=== PATIENT | male | born 1940 | race Caucasian/White ===

== ENCOUNTER 2018-11-08 14:28 | Inpatient (IN) | payer MEDICARE, MEDICAID ==
[~2018-11-08] VITALS: Ht 175.3 cm; Wt 118.4 kg
[2018-11-08] MEDS ORDERED: VANCOMYCIN 1 G PREMIX 200 ML IV ONE (15:15)
[2018-11-08] MEDS ORDERED: ACETAMINOPHEN 325MG TABLET PO ONE (15:15)
[2018-11-08] MEDS ORDERED: PIPERACILLIN/TAZ 3.375G PREMIX 50 ML IV ONE (15:15)
[2018-11-08] MEDS ORDERED: LORAZEPAM 2MG/ML CPJ IV ONE (15:15)
[2018-11-08] MEDS ORDERED: SODIUM CHLORIDE 0.9% 1000ML BAG (SEPSIS BOLUS) IV ONE (15:15)
[2018-11-08 15:43] LABS: HEMATOCRIT. 35.6 % (42.0-52.0); HEMOGLOBIN. 11.8 g/dL (14.0-18.0); MEAN CORPUSCULAR HEMOGLOBIN 28.5 pg (28.0-32.0); MEAN CORPUSCULAR VOLUME 85.6 fL (80.0-94.0); MEAN PLATELET VOLUME 9.6 fl (7.4-10.4); PLATELET 267 x1000/uL (130-400); RED BLOOD CELL COUNT 4.15 mill/uL (4.7-6.1); RED CELL DISTRIBUTION WIDTH 15.9 % (11.6-14.6)
[2018-11-08 15:49] LABS: CHLORIDE 111 mEq/L (98-107); PROTHROMBIN TIME 10.8 sec (9.6-11.0)
[2018-11-08 16:03] LABS: PLATELET ESTIMATE NORMAL
[2018-11-08] MEDS ORDERED: ASPIRIN 325MG EC TABLET PO ONE (17:30)
[2018-11-08] MEDS ORDERED: DILTIAZEM HCL 5MG/ML 5ML VIAL IV ONE (18:00)
[2018-11-08 18:04] LABS: BG BASE EXCESS -0.4 mmol/L (-2.0-2.0); BG CARBOXYHEMOGLOBIN 0.3 % (0.5-1.5); BG DEOXYHEMOGLOBIN 3.9 % (0.0-5.0); BG FRACTION INSPIRED OXYGEN 28; BG HCO3 ACT 23.9 mmol/L (22.0-26.0); BG METHEMOGLOBIN 0.2 % (0.0-1.5); BG OXYGEN SATURATION 96.1 % (92.0-98.5); BG OXYHEMOGLOBIN 95.6 % (94.0-97.0); BG PCO2 37.8 mmHg (35.0-45.0); BG PH 7.419 (7.350-7.450); BG PO2 81.5 mmHg (75.0-100.0); BG SAMPLE SITE RIGHT BRACHIAL; BG TOTAL HEMOGLOBIN 10.2 g/dL (12.0-18.0); BG VENT MODE NASAL CANNULA
[2018-11-08 18:41] LABS: CLARITY URINE CLOUDY (CLEAR); COLOR URINE YELLOW (YELLOW); KETONES URINE NEGATIVE (NEGATIVE); LEUKOCYTE ESTERASE URINE TRACE (NEGATIVE); NITRITE URINE NEGATIVE (NEGATIVE); OCCULT BLOOD URINE TRACE (NEGATIVE); PROTEIN URINE 2+ (NEGATIVE); SPECIFIC GRAVITY URINE 1.012 (1.005-1.030); UROBILINOGEN URINE 0.2 E.U./dL (0.2-1.0)
[2018-11-08] MEDS ORDERED: DILTIAZEM HCL 5MG/ML 5ML VIAL IV PRN (19:15)
[2018-11-08] MEDS ORDERED: IPRATROPIUM/ALBUTEROL 0.5-3(2.5)MG/3ML NEB NEB PRN (19:15)
[2018-11-08] MEDS ORDERED: NA PHOS,M-B/NA PHOS,DI-BA ENEMA 118ML PR PRN (19:15)
[2018-11-08] MEDS ORDERED: LORAZEPAM 0.5MG TABLET PO PRN (19:15)
[2018-11-08] MEDS ORDERED: MAGNESIUM/ALUMINUM HYDROXIDE/SIMETHICONE 30ML UDC PO PRN (19:15)
[2018-11-08] MEDS ORDERED: ONDANSETRON HCL 4MG/2ML INJ IV PRN (19:15)
[2018-11-08] MEDS ORDERED: ACETAMINOPHEN 650MG SUPP PR PRN (19:15)
[2018-11-08] MEDS ORDERED: DEXTROSE 50% WATER 50ML SYRINGE IV PRN (19:15)
[2018-11-08] MEDS ORDERED: HYDROCODONE/ACETAMINOPHEN 5/325MG TABLET PO PRN (19:15)
[2018-11-08] MEDS ORDERED: DIPHENHYDRAMINE 50MG/ML VIAL IV PRN (19:15)
[2018-11-08] MEDS ORDERED: GUAIFENESIN 200MG/10ML SUGAR FREE UDC PO PRN (19:15)
[2018-11-08] MEDS ORDERED: ACETAMINOPHEN 325MG TABLET PO PRN (19:15)
[2018-11-08 22:57] LABS: CREATINE KINASE 169 IU/L (39-308); CREATINE KINASE MB FRACTION < 1.0 ng/mL (0.5-3.6)
[2018-11-09] VITALS (11 sets, daily range): BP systolic 108–136; BP diastolic 52–77
[2018-11-09] MEDS ORDERED: OMEP20CA5 PO (01:24)
[2018-11-09] MEDS ORDERED: FENO50CA4 PO (01:27)
[2018-11-09] MEDS ORDERED: GLIP10TA10 PO (01:34)
[2018-11-09] MEDS ORDERED: DOCU-138 PO (01:35)
[2018-11-09] MEDS ORDERED: LISI40TA4 PO (01:35)
[2018-11-09] MEDS ORDERED: GABA-531 PO (01:41)
[2018-11-09] MEDS ORDERED: MIRT15TA6 PO (01:41)
[2018-11-09] MEDS ORDERED: METO-539 PO (01:41)
[2018-11-09] MEDS ORDERED: METF-414 PO (01:41)
[2018-11-09] MEDS ORDERED: MINO2.5T2 PO (01:41)
[2018-11-09] MEDS ORDERED: FURO40TA5 PO (01:42)
[2018-11-09] MEDS ORDERED: CLOP75TA33 PO (01:42)
[2018-11-09] MEDS ORDERED: CRES10 PO (01:42)
[2018-11-09] MEDS ORDERED: LEVVL SQ (01:42)
[2018-11-09] MEDS ORDERED: VITA1CAP MT (01:45)
[2018-11-09] MEDS ORDERED: MULT1TAB67 PO (01:45)
[2018-11-09] MEDS ORDERED: ASCO-339 PO (01:45)
[2018-11-09] MEDS ORDERED: CRAN450T10 PO (01:46)
[2018-11-09] MEDS: IPRATROPIUM/ALBUTEROL 0.5-3(2.5)MG/3ML NEB NEB SCH ×4 (01:50→21:35)
[2018-11-09] MEDS: PIPERACILLIN/TAZOBACTAM 2.25 G in DEXTROSE 5% WATER 50 ML IV SCH ×2 (01:58→12:54)
[2018-11-09] MEDS: SODIUM CHLORIDE 0.45% 1,000 ML IV SCH ×2 (01:58→15:29)
[2018-11-09] MEDS ORDERED: ENOXAPARIN 100MG/ML SYR SUBCUT SCH (02:00)
[2018-11-09] MEDS: DILTIAZEM HCL 30MG TABLET PO SCH ×3 (05:19→21:00)
[2018-11-09] MEDS: INSULIN LISPRO 100 UNITS/ML SUBCUT SCH ×4 (05:30→20:57)
[2018-11-09] MEDS: BLOOD SUGAR DIAGNOSTIC STRIP TEST SCH ×4 (05:30→20:51)
[2018-11-09 06:29] LABS: BASOPHILS % 0.2 % (0.0-2.0); HEMATOCRIT. 28.9 % (42.0-52.0); HEMOGLOBIN. 9.4 g/dL (14.0-18.0); LYMPHOCYTES % 7.7 % (20.0-50.0); MEAN CORPUSCULAR HEMOGLOBIN 27.8 pg (28.0-32.0); MEAN CORPUSCULAR VOLUME 85.3 fL (80.0-94.0); MEAN PLATELET VOLUME 9.2 fl (7.4-10.4); MONOCYTES % 5.9 % (2.0-8.0); NEUTROPHILS % 86.2 % (40.0-76.0); PLATELET 215 x1000/uL (130-400); RED BLOOD CELL COUNT 3.39 mill/uL (4.7-6.1)
[2018-11-09 06:56] LABS: CHLORIDE 118 mEq/L (98-107)
[2018-11-09 07:04] LABS: LDL CHOLESTEROL 39 mg/dL (5-100)
[2018-11-09 07:05] LABS: CREATINE KINASE 157 IU/L (39-308); CREATINE KINASE MB FRACTION < 1.0 ng/mL (0.5-3.6); HDL CHOLESTEROL 34 mg/dL (40-59); T4 FREE 1.19 ng/dL (0.76-1.46)
[2018-11-09] MEDS: ASPIRIN 81MG TABLET PO SCH (08:49)
[2018-11-09] MEDS: ENOXAPARIN 40MG/0.4ML SYR SUBCUT SCH (08:49)
[2018-11-09] MEDS: FAMOTIDINE 20MG/2ML VIAL IV SCH (08:50)
[2018-11-09 13:44] LABS: BG BASE EXCESS -3.3 mmol/L (-2.0-2.0); BG CARBOXYHEMOGLOBIN 0.3 % (0.5-1.5); BG DEOXYHEMOGLOBIN 4.7 % (0.0-5.0); BG FRACTION INSPIRED OXYGEN 28; BG HCO3 ACT 21.7 mmol/L (22.0-26.0); BG METHEMOGLOBIN 0.2 % (0.0-1.5); BG OXYGEN SATURATION 95.3 % (92.0-98.5); BG OXYHEMOGLOBIN 94.8 % (94.0-97.0); BG PCO2 38.5 mmHg (35.0-45.0); BG PH 7.368 (7.350-7.450); BG PO2 76.8 mmHg (75.0-100.0); BG SAMPLE SITE LEFT RADIAL; BG TOTAL HEMOGLOBIN 10.9 g/dL (12.0-18.0); BG VENT MODE NASAL CANNULA
[2018-11-09] MEDS: DEXTROSE 5% WATER 1,000 ML IV SCH (16:25)
[2018-11-09] MEDS ORDERED: VANCOMYCIN 750 MG PREMIX 150 ML IV SCH (17:00)
[2018-11-10] VITALS (12 sets, daily range): BP systolic 108–168; BP diastolic 56–93
[2018-11-10] MEDS: PIPERACILLIN/TAZOBACTAM 2.25 G in DEXTROSE 5% WATER 50 ML IV SCH ×3 (02:00→17:12)
[2018-11-10] MEDS: DILTIAZEM HCL 30MG TABLET PO SCH ×3 (05:21→21:26)
[2018-11-10] MEDS: BLOOD SUGAR DIAGNOSTIC STRIP TEST SCH ×4 (06:10→20:16)
[2018-11-10 06:46] LABS: HEMATOCRIT 28.5 % (42.0-52.0); HEMOGLOBIN 9.4 g/dL (14.0-18.0); MEAN CORPUSCULAR HEMOGLOBIN 28.1 pg (28.0-32.0); MEAN CORPUSCULAR VOLUME 85.4 fL (80.0-94.0); PLATELET 206 x1000/uL (130-400); RED BLOOD CELL COUNT 3.34 mill/uL (4.7-6.1); RED CELL DISTRIBUTION WIDTH 15.6 % (11.6-14.6)
[2018-11-10] MEDS: INSULIN LISPRO 100 UNITS/ML SUBCUT SCH ×4 (07:20→20:24)
[2018-11-10] MEDS: IPRATROPIUM/ALBUTEROL 0.5-3(2.5)MG/3ML NEB NEB SCH ×3 (08:10→22:24)
[2018-11-10] MEDS: ASPIRIN 81MG TABLET PO SCH (08:26)
[2018-11-10] MEDS: FAMOTIDINE 20MG/2ML VIAL IV SCH (08:26)
[2018-11-10] MEDS: ENOXAPARIN 40MG/0.4ML SYR SUBCUT SCH (08:27)
[2018-11-10] MEDS: DEXTROSE 5% WATER 1,000 ML IV SCH (10:17)
[2018-11-10] MEDS: VANCOMYCIN 1 G PREMIX 200 ML IV SCH (16:24)
[2018-11-11] VITALS (12 sets, daily range): BP systolic 134–184; BP diastolic 63–96
[2018-11-11] MEDS: DEXTROSE 5% WATER 1,000 ML IV SCH ×2 (00:42→20:24)
[2018-11-11] MEDS: PIPERACILLIN/TAZOBACTAM 2.25 G in DEXTROSE 5% WATER 50 ML IV SCH ×2 (01:15→09:46)
[2018-11-11] MEDS: IPRATROPIUM/ALBUTEROL 0.5-3(2.5)MG/3ML NEB NEB SCH ×4 (03:05→20:32)
[2018-11-11] MEDS: DILTIAZEM HCL 30MG TABLET PO SCH ×3 (05:04→21:03)
[2018-11-11] MEDS: BLOOD SUGAR DIAGNOSTIC STRIP TEST SCH ×4 (06:08→20:19)
[2018-11-11 07:13] LABS: HEMATOCRIT 31.5 % (42.0-52.0); HEMOGLOBIN 10.3 g/dL (14.0-18.0); MEAN CORPUSCULAR HEMOGLOBIN 27.9 pg (28.0-32.0); MEAN CORPUSCULAR VOLUME 85.5 fL (80.0-94.0); PLATELET 235 x1000/uL (130-400); RED BLOOD CELL COUNT 3.69 mill/uL (4.7-6.1); RED CELL DISTRIBUTION WIDTH 15.8 % (11.6-14.6)
[2018-11-11] MEDS: ASPIRIN 81MG TABLET PO SCH (08:14)
[2018-11-11] MEDS: FAMOTIDINE 20MG/2ML VIAL IV SCH (08:14)
[2018-11-11] MEDS: DOCUSATE SODIUM 100MG CAPSULE PO PRN (08:14)
[2018-11-11] MEDS: INSULIN LISPRO 100 UNITS/ML SUBCUT SCH ×4 (08:16→20:24)
[2018-11-11] MEDS: ENOXAPARIN 40MG/0.4ML SYR SUBCUT SCH (08:17)
[2018-11-11] MEDS: VANCOMYCIN 1 G PREMIX 200 ML IV SCH (16:49)
[2018-11-11] MEDS: PIPERACILLIN/TAZOBACTAM 3.375 G in DEXT 5% WATER 100 ML IV SCH (17:32)
[2018-11-11] MEDS: CLONIDINE 0.1MG TABLET PO PRN (20:48)
[2018-11-12] VITALS (13 sets, daily range): BP systolic 131–183; BP diastolic 52–86
[2018-11-12] MEDS: PIPERACILLIN/TAZOBACTAM 3.375 G in DEXT 5% WATER 100 ML IV SCH ×2 (01:27→09:13)
[2018-11-12] MEDS: IPRATROPIUM/ALBUTEROL 0.5-3(2.5)MG/3ML NEB NEB SCH ×4 (02:58→20:40)
[2018-11-12] MEDS: DILTIAZEM HCL 30MG TABLET PO SCH ×3 (06:04→21:27)
[2018-11-12] MEDS: BLOOD SUGAR DIAGNOSTIC STRIP TEST SCH ×4 (06:05→21:26)
[2018-11-12 07:14] LABS: HEMATOCRIT. 29.6 % (42.0-52.0); HEMOGLOBIN. 9.9 g/dL (14.0-18.0); MEAN CORPUSCULAR HEMOGLOBIN 28.2 pg (28.0-32.0); MEAN CORPUSCULAR VOLUME 84.5 fL (80.0-94.0); MEAN PLATELET VOLUME 9.3 fl (7.4-10.4); PLATELET 248 x1000/uL (130-400); RED BLOOD CELL COUNT 3.51 mill/uL (4.7-6.1); RED CELL DISTRIBUTION WIDTH 15.3 % (11.6-14.6)
[2018-11-12 07:34] LABS: CHLORIDE 110 mEq/L (98-107)
[2018-11-12] MEDS: INSULIN LISPRO 100 UNITS/ML SUBCUT SCH ×4 (08:45→21:21)
[2018-11-12] MEDS: ENOXAPARIN 40MG/0.4ML SYR SUBCUT SCH (08:46)
[2018-11-12] MEDS: ASPIRIN 81MG TABLET PO SCH (08:46)
[2018-11-12] MEDS: FAMOTIDINE 20MG/2ML VIAL IV SCH (08:46)
[2018-11-12] MEDS: DEXTROSE 5% WATER 1,000 ML IV SCH (08:49)
[2018-11-12] MEDS: CLONIDINE 0.1MG TABLET PO PRN ×2 (08:55→21:28)
[2018-11-12 10:17] LABS: BG BASE EXCESS -0.6 mmol/L (-2.0-2.0); BG CARBOXYHEMOGLOBIN 0.2 % (0.5-1.5); BG DEOXYHEMOGLOBIN 6.3 % (0.0-5.0); BG FRACTION INSPIRED OXYGEN 21; BG HCO3 ACT 23.4 mmol/L (22.0-26.0); BG METHEMOGLOBIN 0.2 % (0.0-1.5); BG OXYGEN SATURATION 93.7 % (92.0-98.5); BG OXYHEMOGLOBIN 93.3 % (94.0-97.0); BG PCO2 35.6 mmHg (35.0-45.0); BG PH 7.435 (7.350-7.450); BG PO2 65.9 mmHg (75.0-100.0); BG SAMPLE SITE RIGHT BRACHIAL; BG TOTAL HEMOGLOBIN 10.3 g/dL (12.0-18.0); BG VENT MODE ROOM AIR
[2018-11-12] MEDS ORDERED: LEVOFLOXACIN 500MG TABLET PO SCH (11:00)
[2018-11-12] MEDS ORDERED: DILT-26 MT (11:26)
[2018-11-12] MEDS ORDERED: LEVO500T2 PO (11:26)
[2018-11-12] MEDS ORDERED: FURO20TA4 MT (11:26)
[2018-11-12] MEDS ORDERED: POTASSIUM CHLORIDE 20MEQ TABLET SR PO NR (11:29)
[2018-11-12 14:05] LABS: PLATELET ESTIMATE NORMAL
[2018-11-12] MEDS: LISINOPRIL 40MG TABLET PO SCH (18:16)
[2018-11-13] VITALS (13 sets, daily range): BP systolic 87–170; BP diastolic 61–86
[2018-11-13] MEDS: IPRATROPIUM/ALBUTEROL 0.5-3(2.5)MG/3ML NEB NEB SCH ×3 (02:12→14:37)
[2018-11-13] MEDS: INSULIN LISPRO 100 UNITS/ML SUBCUT SCH ×4 (06:35→21:32)
[2018-11-13] MEDS: CLONIDINE 0.1MG TABLET PO PRN ×4 (06:40→21:19)
[2018-11-13] MEDS: DILTIAZEM HCL 30MG TABLET PO SCH ×3 (06:40→21:18)
[2018-11-13] MEDS: BLOOD SUGAR DIAGNOSTIC STRIP TEST SCH ×4 (06:40→21:17)
[2018-11-13 07:16] LABS: HEMATOCRIT 30.4 % (42.0-52.0); MEAN CORPUSCULAR HEMOGLOBIN 28.1 pg (28.0-32.0); PLATELET 303 x1000/uL (130-400); RED BLOOD CELL COUNT 3.58 mill/uL (4.7-6.1); RED CELL DISTRIBUTION WIDTH 15.5 % (11.6-14.6)
[2018-11-13] MEDS: DOCUSATE SODIUM 100MG CAPSULE PO PRN (08:36)
[2018-11-13] MEDS: LISINOPRIL 40MG TABLET PO SCH (08:36)
[2018-11-13] MEDS: ASPIRIN 81MG TABLET PO SCH (08:36)
[2018-11-13] MEDS: FAMOTIDINE 20MG/2ML VIAL IV SCH (08:36)
[2018-11-13] MEDS: ENOXAPARIN 40MG/0.4ML SYR SUBCUT SCH (08:37)
[2018-11-13] MEDS ORDERED: POTASSIUM CHLORIDE 20MEQ TABLET SR PO NR (13:00)
[2018-11-13] MEDS ORDERED: INSULIN GLARGINE UD 100 UNITS/ML SYR SUBCUT SCH (22:00)
[2018-11-13] MEDS ORDERED: HYDRALAZINE 20MG/ML VIAL IV NR (22:15)
== END 2018-11-13 22:49 | DRG 871 ==
LOC: ER 14:28 → 3WST 17:39 → SUPCPDRO 18:45 → ENRESERV 22:01
PROVIDERS: ADMIT Internal Medicine Critical Care Medicine; ATTEND Internal Medicine Critical Care Medicine
DX: A41.51 Sepsis due to Escherichia coli [E. coli] (principal); I21.4 Non-ST elevation (NSTEMI) myocardial infarction; J96.20 Acute and chronic respiratory failure, unspecified whether with hypoxia or hypercapnia; N17.0 Acute kidney failure with tubular necrosis; G93.40 Encephalopathy, unspecified; L03.115 Cellulitis of right lower limb; N39.0 Urinary tract infection, site not specified; I42.9 Cardiomyopathy, unspecified; I47.1 Supraventricular tachycardia; J98.11 Atelectasis; D64.9 Anemia, unspecified; E11.65 Type 2 diabetes mellitus with hyperglycemia; E78.00 Pure hypercholesterolemia, unspecified; E78.5 Hyperlipidemia, unspecified; E66.9 Obesity, unspecified; E86.0 Dehydration; E87.6 Hypokalemia; I10 Essential (primary) hypertension; Z16.12 Extended spectrum beta lactamase (ESBL) resistance; R13.10 Dysphagia, unspecified; E11.649 Type 2 diabetes mellitus with hypoglycemia without coma; E11.51 Type 2 diabetes mellitus with diabetic peripheral angiopathy without gangrene; G25.3 Myoclonus; Z86.73 Personal history of transient ischemic attack (TIA), and cerebral infarction without residual deficits; Z89.512 Acquired absence of left leg below knee; Z87.891 Personal history of nicotine dependence; Z82.49 Family history of ischemic heart disease and other diseases of the circulatory system; Z99.3 Dependence on wheelchair; Z68.38 Body mass index [BMI] 38.0-38.9, adult
CPT/HCPCS: 36415; 36600; 71045; 73700; 80048; 80061; 80202; 81003; 82140; 82375; 82550; 82553; 82805; 82962; 83036; 83605; 83880; 84145; 84439; 84443; 84484; 85027; 87077; 87186; 92610; 93005; 93306; 93923; 93970; 94640; 96365; 97161; 99291; A6261; J1650; J1815; J2060; J2543; J3370; J3490; J7030; J7060; J7070; J7620

== ENCOUNTER 2018-11-29 15:21 | Inpatient (IN) | payer MEDICARE, MEDICAID ==
[~2018-11-29] VITALS: Ht 167.6 cm; Wt 104.3 kg
[~2018-11-29 15:21] MED LIST: ASCO-339 PO; CLOP75TA33 PO; CRAN450T10 PO; CRES10 PO; DILT-26 MT; DOCU-138 PO; FENO50CA4 PO; FURO20TA4 MT; GABA-531 PO; GLIP10TA10 PO; LEVO500T2 PO; LEVVL SQ; LISI40TA4 PO; METF-414 PO; MIRT15TA6 PO; MULT1TAB67 PO; OMEP20CA5 PO; VITA1CAP MT
[2018-11-29] MEDS ORDERED: SODIUM CHLORIDE 0.9% 1,000 ML IV ONE (18:50)
[2018-11-29] MEDS ORDERED: ACETAMINOPHEN 650MG SUPP PR STA (19:13)
[2018-11-29] MEDS ORDERED: SODIUM CHLORIDE 0.9% 1000ML BAG (SEPSIS BOLUS) IV ONE (19:15)
[2018-11-29] MEDS ORDERED: LEVOFLOXACIN 500MG PREMIX 100 ML IV ONE (19:15)
[2018-11-29] MEDS ORDERED: PIPERACILLIN/TAZ 3.375G PREMIX 50 ML IV ONE (19:15)
[2018-11-29 19:55] LABS: BASOPHILS % 0.6 % (0.0-2.0); CHLORIDE 115 mEq/L (98-107); EOSINOPHILS % 6.2 % (0.0-5.0); HEMOGLOBIN. 12.5 g/dL (14.0-18.0); MEAN CORPUSCULAR HEMOGLOBIN 27.8 pg (28.0-32.0); MEAN CORPUSCULAR VOLUME 84.8 fL (80.0-94.0); MEAN PLATELET VOLUME 10.1 fl (7.4-10.4); MONOCYTES % 6.1 % (2.0-8.0); NEUTROPHILS % 63.1 % (40.0-76.0); PLATELET 252 x1000/uL (130-400); PROTHROMBIN TIME 10.1 sec (9.6-11.0); RED BLOOD CELL COUNT 4.48 mill/uL (4.7-6.1); RED CELL DISTRIBUTION WIDTH 15.9 % (11.6-14.6)
[2018-11-29 19:59] LABS: ETHANOL BLOOD < 10 mg/dL
[2018-11-29 20:03] LABS: CREATINE KINASE 38 IU/L (39-308)
[2018-11-29] MEDS ORDERED: KCL 20MEQ/100ML PREMIX 100 ML IV ONE (20:15)
[2018-11-29] MEDS ORDERED: IPRATROPIUM/ALBUTEROL 0.5-3(2.5)MG/3ML NEB NEB PRN (21:00)
[2018-11-29] MEDS ORDERED: DEXTROSE 50% WATER 50ML SYRINGE IV PRN (21:00)
[2018-11-29] MEDS ORDERED: DIPHENHYDRAMINE 50MG/ML VIAL IV PRN (21:00)
[2018-11-29] MEDS ORDERED: HYDROCODONE/ACETAMINOPHEN 5/325MG TABLET PO PRN (21:00)
[2018-11-29] MEDS ORDERED: MAGNESIUM/ALUMINUM HYDROXIDE/SIMETHICONE 30ML UDC PO PRN (21:00)
[2018-11-29] MEDS ORDERED: ONDANSETRON HCL 4MG/2ML INJ IV PRN (21:00)
[2018-11-29] MEDS ORDERED: LORAZEPAM 2MG/ML CPJ IV PRN (21:00)
[2018-11-29] MEDS ORDERED: GUAIFENESIN 200MG/10ML SUGAR FREE UDC PO PRN (21:00)
[2018-11-29] MEDS ORDERED: MORPHINE SULFATE 2 MG/ML CPJ (NOT FOR IM USE) IV PRN (21:00)
[2018-11-29] MEDS ORDERED: POTASSIUM CHLORIDE 20MEQ TABLET SR PO ONE (21:00)
[2018-11-29 21:11] LABS: CLARITY URINE CLEAR (CLEAR); COLOR URINE YELLOW (YELLOW); KETONES URINE NEGATIVE (NEGATIVE); LEUKOCYTE ESTERASE URINE NEGATIVE (NEGATIVE); NITRITE URINE NEGATIVE (NEGATIVE); OCCULT BLOOD URINE NEGATIVE (NEGATIVE); PH URINE 5.5 (4.5-8.0); PROTEIN URINE 2+ (NEGATIVE); SPECIFIC GRAVITY URINE 1.014 (1.005-1.030); UROBILINOGEN URINE 0.2 E.U./dL (0.2-1.0)
[2018-11-29 21:23] LABS: METHADONE URINE SCREEN NEGATIVE (NEGATIVE); OPIATES URINE SCREEN NEGATIVE (NEGATIVE)
[2018-11-29 21:24] LABS: *AMPHETAMINES SCREEN URINE NEGATIVE (NEGATIVE); *BARBITURATES SCREEN URINE NEGATIVE (NEGATIVE); *BENZODIAZEPINES SCREEN URINE NEGATIVE (NEGATIVE); *COCAINE SCREEN URINE NEGATIVE (NEGATIVE); CANNABINOID URINE SCREEN NEGATIVE (NEGATIVE); PHENCYCLIDINE URINE SCREEN NEGATIVE (NEGATIVE)
[2018-11-29] MEDS ORDERED: INSULIN GLARGINE UD 100 UNITS/ML SYR SUBCUT SCH (22:00)
[2018-11-29] MEDS: CLONIDINE 0.1MG TABLET PO PRN (22:59)
[2018-11-29 23:50] VITALS: BP 165/77
[2018-11-30 00:11] VITALS: BP 165/77
[2018-11-30] MEDS: IPRATROPIUM/ALBUTEROL 0.5-3(2.5)MG/3ML NEB HHN SCH ×4 (00:56→20:11)
[2018-11-30] MEDS ORDERED: POTASSIUM CHLORIDE 20MEQ TABLET SR PO NR (01:00)
[2018-11-30] MEDS: DILTIAZEM HCL 30MG TABLET PO SCH ×3 (02:45→18:07)
[2018-11-30] MEDS: INSULIN GLARGINE UD 100 UNITS/ML SYR SUBCUT SCH ×3 (02:47→22:30)
[2018-11-30] MEDS: SODIUM CHLORIDE 0.45% 1,000 ML IV SCH ×2 (03:02→22:25)
[2018-11-30 04:21] VITALS: BP 179/82
[2018-11-30] MEDS: BLOOD SUGAR DIAGNOSTIC STRIP TEST SCH ×4 (06:35→21:21)
[2018-11-30] MEDS: INSULIN LISPRO 100 UNITS/ML SUBCUT SCH ×4 (06:36→22:29)
[2018-11-30 06:57] LABS: CHLORIDE 122 mEq/L (98-107)
[2018-11-30 07:05] LABS: PHOSPHORUS 2.4 mg/dL (2.5-4.9)
[2018-11-30 07:13] LABS: BASOPHILS % 0.5 % (0.0-2.0); EOSINOPHILS % 6.8 % (0.0-5.0); HEMATOCRIT. 35.6 % (42.0-52.0); HEMOGLOBIN. 11.7 g/dL (14.0-18.0); MEAN CORPUSCULAR VOLUME 84.9 fL (80.0-94.0); MEAN PLATELET VOLUME 9.9 fl (7.4-10.4); MONOCYTES % 7.3 % (2.0-8.0); NEUTROPHILS % 70.4 % (40.0-76.0); PLATELET 206 x1000/uL (130-400); RED BLOOD CELL COUNT 4.19 mill/uL (4.7-6.1); RED CELL DISTRIBUTION WIDTH 15.2 % (11.6-14.6)
[2018-11-30 08:00] VITALS: BP 116/47
[2018-11-30] MEDS ORDERED: PNEUMOCOCCAL 23-VAL P-SAC VAC 0.5 ML IM ONE (08:00)
[2018-11-30] MEDS ORDERED: POTASSIUM CHLORIDE 20MEQ TABLET SR PO SCH ×2 (08:00→13:00)
[2018-11-30] MEDS: LISINOPRIL 40MG TABLET PO SCH (08:53)
[2018-11-30] MEDS: SULFAMETHOXAZOLE/TRIMETHOPRIM 400/80MG TAB PO SCH ×2 (08:53→21:21)
[2018-11-30] MEDS: ENOXAPARIN 30MG/0.3ML SYR SUBCUT SCH ×2 (08:54→21:21)
[2018-11-30] MEDS: ASPIRIN 81MG TABLET PO SCH (08:54)
[2018-11-30] MEDS ORDERED: INFLUENZA VIRUS VACCINE(AFLURIA) 0.5ML SYR IM ONE (10:00)
[2018-11-30 13:00] VITALS: BP_SYST 196; BP_SYST 203; BP_DIAS 80; BP_DIAS 98
[2018-11-30 16:00] VITALS: BP 196/80
[2018-11-30] MEDS: CLONIDINE 0.1MG TABLET PO PRN (18:10)
[2018-11-30] MEDS ORDERED: VANCOMYCIN 1500MG in DEXTROSE 5% WATER 250ML IV SCH (19:00)
[2018-11-30 20:00] VITALS: BP 181/55
[2018-11-30] MEDS: NYSTATIN POWDER 15GM TOP SCH (21:19)
[2018-11-30] MEDS: PIPERACILLIN/TAZOBACTAM 3.375 G in DEXT 5% WATER 100 ML IV SCH (21:22)
[2018-11-30] MEDS ORDERED: PIPERACILLIN/TAZOBACTAM 3.375GM/50ML PREMIX IV ONE (22:00)
[2018-12-01] VITALS: BP 198/74
[2018-12-01] MEDS: DILTIAZEM HCL 30MG TABLET PO SCH ×3 (00:18→15:44)
[2018-12-01] MEDS: CLONIDINE 0.1MG TABLET PO PRN ×3 (00:18→22:15)
[2018-12-01] MEDS: IPRATROPIUM/ALBUTEROL 0.5-3(2.5)MG/3ML NEB HHN SCH ×4 (01:45→21:42)
[2018-12-01 04:00] VITALS: BP 128/77
[2018-12-01] MEDS: PIPERACILLIN/TAZOBACTAM 3.375 G in DEXT 5% WATER 100 ML IV SCH ×3 (06:25→16:32)
[2018-12-01] MEDS: BLOOD SUGAR DIAGNOSTIC STRIP TEST SCH ×4 (06:29→21:00)
[2018-12-01] MEDS: INSULIN LISPRO 100 UNITS/ML SUBCUT SCH ×4 (06:56→22:48)
[2018-12-01] MEDS ORDERED: VANCOMYCIN 750 MG PREMIX 150 ML IV SCH (07:00)
[2018-12-01 08:00] VITALS: BP 190/45
[2018-12-01] MEDS: NYSTATIN POWDER 15GM TOP SCH ×3 (08:35→16:34)
[2018-12-01] MEDS: LISINOPRIL 40MG TABLET PO SCH (08:36)
[2018-12-01] MEDS: ASPIRIN 81MG TABLET PO SCH (08:36)
[2018-12-01] MEDS: SULFAMETHOXAZOLE/TRIMETHOPRIM 400/80MG TAB PO SCH ×2 (08:36→21:56)
[2018-12-01] MEDS: ENOXAPARIN 30MG/0.3ML SYR SUBCUT SCH ×2 (08:38→22:52)
[2018-12-01] MEDS: INSULIN GLARGINE UD 100 UNITS/ML SYR SUBCUT SCH ×2 (10:03→22:58)
[2018-12-01 12:00] VITALS: BP 184/54
[2018-12-01 16:00] VITALS: BP 154/58
[2018-12-01] MEDS: SODIUM CHLORIDE 0.45% 1,000 ML IV SCH (17:13)
[2018-12-01 20:00] VITALS: BP 164/75
[2018-12-01] MEDS ORDERED: VANCOMYCIN 1 G PREMIX 200 ML IV SCH (21:00)
[2018-12-01] MEDS: ACETAMINOPHEN 325MG TABLET PO PRN (22:14)
[2018-12-02] VITALS: BP 138/61
[2018-12-02] MEDS: DILTIAZEM HCL 30MG TABLET PO SCH ×4 (01:00→23:49)
[2018-12-02] MEDS: PIPERACILLIN/TAZOBACTAM 3.375 G in DEXT 5% WATER 100 ML IV SCH ×3 (01:00→17:49)
[2018-12-02] MEDS: IPRATROPIUM/ALBUTEROL 0.5-3(2.5)MG/3ML NEB HHN SCH ×4 (02:39→21:48)
[2018-12-02 04:00] VITALS: BP 132/58
[2018-12-02] MEDS: ACETAMINOPHEN 325MG TABLET PO PRN (06:16)
[2018-12-02 07:00] LABS: CHLORIDE 113 mEq/L (98-107)
[2018-12-02] MEDS: BLOOD SUGAR DIAGNOSTIC STRIP TEST SCH ×4 (07:03→21:38)
[2018-12-02] MEDS: INSULIN LISPRO 100 UNITS/ML SUBCUT SCH ×4 (07:15→22:06)
[2018-12-02 07:33] VITALS: BP 122/87
[2018-12-02] MEDS: ASPIRIN 81MG TABLET PO SCH (08:25)
[2018-12-02] MEDS: SULFAMETHOXAZOLE/TRIMETHOPRIM 400/80MG TAB PO SCH (08:26)
[2018-12-02] MEDS: LISINOPRIL 40MG TABLET PO SCH (08:26)
[2018-12-02] MEDS: CLONIDINE 0.1MG TABLET PO PRN (08:27)
[2018-12-02] MEDS: NYSTATIN POWDER 15GM TOP SCH ×3 (08:27→17:41)
[2018-12-02] MEDS: ENOXAPARIN 30MG/0.3ML SYR SUBCUT SCH ×2 (08:27→21:43)
[2018-12-02] MEDS: INSULIN GLARGINE UD 100 UNITS/ML SYR SUBCUT SCH ×2 (10:54→22:06)
[2018-12-02 12:03] VITALS: BP 146/56
[2018-12-02] MEDS: SODIUM CHLORIDE 0.45% 1,000 ML IV SCH (12:56)
[2018-12-02 16:28] VITALS: BP 160/62
[2018-12-02] MEDS ORDERED: KCL 10MEQ/50ML PREMIX 50 ML IV NR (17:30)
[2018-12-02 20:00] VITALS: BP 153/71
[2018-12-02] MEDS: VANCOMYCIN 1 G PREMIX 200 ML IV SCH (21:32)
[2018-12-03] VITALS: BP 183/73
[2018-12-03] MEDS: PIPERACILLIN/TAZOBACTAM 3.375 G in DEXT 5% WATER 100 ML IV SCH ×3 (00:49→17:34)
[2018-12-03] MEDS: IPRATROPIUM/ALBUTEROL 0.5-3(2.5)MG/3ML NEB HHN SCH ×3 (02:40→13:56)
[2018-12-03 04:00] VITALS: BP 192/85
[2018-12-03] MEDS: CLONIDINE 0.1MG TABLET PO PRN ×2 (04:17→18:46)
[2018-12-03] MEDS: INSULIN LISPRO 100 UNITS/ML SUBCUT SCH (06:11)
[2018-12-03] MEDS: BLOOD SUGAR DIAGNOSTIC STRIP TEST SCH (06:11)
[2018-12-03 07:44] LABS: CHLORIDE 111 mEq/L (98-107)
[2018-12-03 08:00] VITALS: BP 140/77
[2018-12-03] MEDS: LISINOPRIL 40MG TABLET PO SCH (08:49)
[2018-12-03] MEDS: DILTIAZEM HCL 30MG TABLET PO SCH ×2 (08:49→16:25)
[2018-12-03] MEDS: ASPIRIN 81MG TABLET PO SCH (08:49)
[2018-12-03] MEDS: SODIUM CHLORIDE 0.45% 1,000 ML IV SCH (08:51)
[2018-12-03] MEDS: ENOXAPARIN 30MG/0.3ML SYR SUBCUT SCH (08:51)
[2018-12-03] MEDS: NYSTATIN POWDER 15GM TOP SCH ×3 (08:51→17:34)
[2018-12-03] MEDS: INSULIN GLARGINE UD 100 UNITS/ML SYR SUBCUT SCH (10:16)
[2018-12-03] MEDS ORDERED: POTASSIUM CHLORIDE 20MEQ TABLET SR PO NR (11:30)
[2018-12-03 12:00] VITALS: BP 170/73
[2018-12-03 13:54] VITALS: BP 170/73
[2018-12-03] MEDS: VANCOMYCIN 1 G PREMIX 200 ML IV SCH (14:36)
[2018-12-03 16:00] VITALS: BP 170/82
== END 2018-12-03 19:12 | DRG 70 ==
LOC: ER 15:36 → EDBEDREQ 20:10 → EDBEDREQTM 20:10 → 5WST 20:25 → EDBEDREQ 20:37 → EDBEDREQTM 20:37 → ENRESERV 22:17
PROVIDERS: ADMIT Internal Medicine Critical Care Medicine; ATTEND Internal Medicine Critical Care Medicine
DX: G93.41 Metabolic encephalopathy (principal); L89.153 Pressure ulcer of sacral region, stage 3; L89.303 Pressure ulcer of unspecified buttock, stage 3; L03.115 Cellulitis of right lower limb; J96.10 Chronic respiratory failure, unspecified whether with hypoxia or hypercapnia; I42.9 Cardiomyopathy, unspecified; L03.116 Cellulitis of left lower limb; E11.51 Type 2 diabetes mellitus with diabetic peripheral angiopathy without gangrene; G47.33 Obstructive sleep apnea (adult) (pediatric); R32 Unspecified urinary incontinence; E87.6 Hypokalemia; I87.2 Venous insufficiency (chronic) (peripheral); E78.5 Hyperlipidemia, unspecified; E78.00 Pure hypercholesterolemia, unspecified; Z89.512 Acquired absence of left leg below knee; Z79.02 Long term (current) use of antithrombotics/antiplatelets; Z79.4 Long term (current) use of insulin; Z99.3 Dependence on wheelchair; Z79.899 Other long term (current) drug therapy; I69.322 Dysarthria following cerebral infarction; I10 Essential (primary) hypertension
CPT/HCPCS: 36415; 70551; 71045; 80048; 80202; 80305; 80320; 81003; 82550; 82962; 83036; 83605; 83735; 83880; 84100; 84134; 84443; 84484; 87077; 87186; 87804; 90686; 90732; 93005; 94640; 96365; 97162; 97166; 99291; J1650; J1815; J1956; J2543; J3370; J3480; J7030; J7060; J7620; G0480

== ENCOUNTER 2019-03-09 12:45 | Inpatient (IN) | payer MEDICARE, MEDICAID ==
[~2019-03-09] VITALS: Ht 175.3 cm; Wt 105.2 kg
[~2019-03-09 12:45] MED LIST changes: +OMEP20CA14 PO; -OMEP20CA5 PO
[2019-03-09] MEDS ORDERED: IPRATROPIUM BROMIDE (0.02%) 0.5MG/2.5ML NEB HHN STA (13:00)
[2019-03-09] MEDS ORDERED: ALBUTEROL (0.083%) 2.5MG/3ML NEB HHN STA (13:00)
[2019-03-09] MEDS ORDERED: ACETAMINOPHEN 650MG SUPP PR STA (13:00)
[2019-03-09] MEDS ORDERED: SODIUM CHLORIDE 0.9% 1000ML BAG (SEPSIS BOLUS) IV ONE (13:00)
[2019-03-09] MEDS ORDERED: LEVOFLOXACIN 750MG PREMIX 150 ML IV ONE (13:00)
[2019-03-09 13:19] LABS: HEMATOCRIT. 32.9 % (42.0-52.0); HEMOGLOBIN. 10.8 g/dL (14.0-18.0); MEAN CORPUSCULAR HEMOGLOBIN 27.9 pg (28.0-32.0); MEAN CORPUSCULAR VOLUME 85.2 fL (80.0-94.0); RED BLOOD CELL COUNT 3.86 mill/uL (4.7-6.1); RED CELL DISTRIBUTION WIDTH 15.7 % (11.6-14.6)
[2019-03-09 13:26] LABS: CHLORIDE 116 mEq/L (98-107); INR 1.1; PROTHROMBIN TIME 11.6 sec (9.6-11.0)
[2019-03-09 13:47] LABS: MEAN PLATELET VOLUME 9.8 fl (7.4-10.4); PLATELET 293 x1000/uL (130-400); PLATELET ESTIMATE NORMAL
[2019-03-09 14:30] LABS: CLARITY URINE CLEAR (CLEAR); COLOR URINE YELLOW (YELLOW); KETONES URINE NEGATIVE (NEGATIVE); LEUKOCYTE ESTERASE URINE NEGATIVE (NEGATIVE); NITRITE URINE NEGATIVE (NEGATIVE); OCCULT BLOOD URINE NEGATIVE (NEGATIVE); PROTEIN URINE 2+ (NEGATIVE); SPECIFIC GRAVITY URINE 1.013 (1.005-1.030); UROBILINOGEN URINE 0.2 E.U./dL (0.2-1.0)
[2019-03-09] MEDS ORDERED: ACETAMINOPHEN 325MG TABLET PO PRN (15:00)
[2019-03-09] MEDS ORDERED: DEXTROSE 50% WATER 50ML SYRINGE IV PRN (15:00)
[2019-03-09] MEDS ORDERED: IPRATROPIUM/ALBUTEROL 0.5-3(2.5)MG/3ML NEB HHN PRN (15:00)
[2019-03-09] MEDS ORDERED: ONDANSETRON HCL 4MG/2ML INJ IV PRN (15:00)
[2019-03-09] MEDS ORDERED: ASPIRIN 300MG SUPP PR NR (16:30)
[2019-03-09] MEDS ORDERED: PIPERACILLIN/TAZOBACTAM 3.375 G in DEXT 5% WATER 100 ML IV SCH ×2 (16:30→22:00)
[2019-03-09] MEDS ORDERED: LIDOCAINE HCL/PF 1% 2ML VIAL ONE (16:42)
[2019-03-09 17:28] LABS: BG BASE EXCESS -2.5 mmol/L (-2.0-2.0); BG CARBOXYHEMOGLOBIN 0.1 % (0.5-1.5); BG DEOXYHEMOGLOBIN 7.9 % (0.0-5.0); BG HCO3 ACT 23.1 mmol/L (22.0-26.0); BG METHEMOGLOBIN 0.2 % (0.0-1.5); BG OXYGEN SATURATION 92.1 % (92.0-98.5); BG OXYHEMOGLOBIN 91.8 % (94.0-97.0); BG PH 7.348 (7.350-7.450); BG PO2 65.8 mmHg (75.0-100.0); BG SAMPLE SITE RIGHT RADIAL; BG TOTAL HEMOGLOBIN 10.7 g/dL (12.0-18.0); BG VENT MODE MASK - SIMPLE
[2019-03-09 21:10] VITALS: BP 125/53
[2019-03-09] MEDS: BLOOD SUGAR DIAGNOSTIC STRIP TEST SCH (21:15)
[2019-03-09] MEDS: INSULIN LISPRO 100 UNITS/ML SUBCUT SCH (21:30)
[2019-03-09 22:00] VITALS: BP 125/53
[2019-03-09] MEDS ORDERED: VANCOMYCIN 1500MG in DEXTROSE 5% WATER 250ML IV SCH (23:00)
[2019-03-09 23:43] LABS: CREATINE KINASE MB FRACTION 13.9 ng/mL (0.5-3.6)
[2019-03-10] VITALS (13 sets, daily range): BP systolic 114–150; BP diastolic 59–99
[2019-03-10] MEDS: PIPERACILLIN/TAZOBACTAM 2.25 G in DEXTROSE 5% WATER 50 ML IV SCH ×5 (00:12→22:10)
[2019-03-10] MEDS ORDERED: MINO2.5T2 PO (01:53)
[2019-03-10] MEDS ORDERED: AMLO10TA80 MT (01:56)
[2019-03-10] MEDS ORDERED: LOSA1TAB34 MT (01:57)
[2019-03-10] MEDS ORDERED: FURO40TA5 MT (02:01)
[2019-03-10] MEDS ORDERED: IPRA3AMP9 HHN (02:05)
[2019-03-10] MEDS ORDERED: CHOL200059 MT (02:09)
[2019-03-10] MEDS ORDERED: CHOL200059 PO (02:11)
[2019-03-10] MEDS ORDERED: OMEG1CAP66 MT ×2 (02:12→02:14)
[2019-03-10] MEDS ORDERED: SULF-288 MT (02:16)
[2019-03-10] MEDS ORDERED: TERB250T51 PO (02:19)
[2019-03-10] MEDS ORDERED: POTA8TAB MT (02:20)
[2019-03-10] MEDS ORDERED: DILT180C66 MT (02:24)
[2019-03-10] MEDS: BLOOD SUGAR DIAGNOSTIC STRIP TEST SCH ×4 (06:36→21:00)
[2019-03-10 08:53] LABS: HEMATOCRIT. 30.9 % (42.0-52.0); MEAN CORPUSCULAR HEMOGLOBIN 27.7 pg (28.0-32.0); MEAN CORPUSCULAR VOLUME 85.3 fL (80.0-94.0); PLATELET 246 x1000/uL (130-400); RED BLOOD CELL COUNT 3.62 mill/uL (4.7-6.1); RED CELL DISTRIBUTION WIDTH 15.9 % (11.6-14.6)
[2019-03-10] MEDS: INSULIN LISPRO 100 UNITS/ML SUBCUT SCH ×4 (09:10→22:11)
[2019-03-10] MEDS: ENOXAPARIN 40MG/0.4ML SYR SUBCUT SCH (09:11)
[2019-03-10] MEDS: ASPIRIN 81MG TABLET PO SCH (09:11)
[2019-03-10] MEDS ORDERED: INFLUENZA VIRUS VACCINE(AFLURIA) 0.5ML SYR IM ONE (09:45)
[2019-03-10 10:11] LABS: PLATELET ESTIMATE NORMAL
[2019-03-10 10:29] LABS: PHOSPHORUS 5.9 mg/dL (2.5-4.9)
[2019-03-10 10:33] LABS: CREATINE KINASE MB FRACTION 9.6 ng/mL (0.5-3.6)
[2019-03-10] MEDS ORDERED: ALBUMIN HUMAN 25GM/100ML (25%) IV ONE (11:30)
[2019-03-10] MEDS: SODIUM CHLORIDE 0.45% 1,000 ML IV SCH (12:45)
[2019-03-10 16:29] LABS: CREATINE KINASE MB FRACTION 6.1 ng/mL (0.5-3.6)
[2019-03-11] VITALS (73 sets, daily range): BP systolic 71–156; BP diastolic 41–76
[2019-03-11] MEDS: SODIUM CHLORIDE 0.45% 1,000 ML IV SCH ×2 (00:50→16:57)
[2019-03-11] MEDS: PIPERACILLIN/TAZOBACTAM 2.25 G in DEXTROSE 5% WATER 50 ML IV SCH ×2 (04:58→10:33)
[2019-03-11 05:55] LABS: BASOPHILS % 0.5 % (0.0-2.0); EOSINOPHILS % 0.2 % (0.0-5.0); HEMATOCRIT. 29.3 % (42.0-52.0); HEMOGLOBIN. 9.8 g/dL (14.0-18.0); LYMPHOCYTES % 8.5 % (20.0-50.0); MEAN CORPUSCULAR HEMOGLOBIN 28.3 pg (28.0-32.0); MEAN CORPUSCULAR VOLUME 84.4 fL (80.0-94.0); MEAN PLATELET VOLUME 9.4 fl (7.4-10.4); MONOCYTES % 7.8 % (2.0-8.0); PLATELET 239 x1000/uL (130-400); RED BLOOD CELL COUNT 3.48 mill/uL (4.7-6.1); RED CELL DISTRIBUTION WIDTH 15.8 % (11.6-14.6)
[2019-03-11 06:43] LABS: PHOSPHORUS 4.6 mg/dL (2.5-4.9)
[2019-03-11] MEDS: BLOOD SUGAR DIAGNOSTIC STRIP TEST SCH ×4 (07:34→20:17)
[2019-03-11] MEDS: INSULIN LISPRO 100 UNITS/ML SUBCUT SCH ×4 (08:48→20:17)
[2019-03-11] MEDS: ENOXAPARIN 40MG/0.4ML SYR SUBCUT SCH (08:49)
[2019-03-11] MEDS: ASPIRIN 81MG TABLET PO SCH (08:49)
[2019-03-11 08:59] LABS: BG BASE EXCESS -5.6 mmol/L (-2.0-2.0); BG CARBOXYHEMOGLOBIN 0.3 % (0.5-1.5); BG DEOXYHEMOGLOBIN 14.5 % (0.0-5.0); BG FRACTION INSPIRED OXYGEN 60; BG HCO3 ACT 21.2 mmol/L (22.0-26.0); BG METHEMOGLOBIN 0.3 % (0.0-1.5); BG OXYGEN SATURATION 85.4 % (92.0-98.5); BG OXYHEMOGLOBIN 84.9 % (94.0-97.0); BG PCO2 47.2 mmHg (35.0-45.0); BG PO2 51.8 mmHg (75.0-100.0); BG SAMPLE SITE RIGHT RADIAL; BG TOTAL HEMOGLOBIN 10.5 g/dL (12.0-18.0); BG VENT MODE MASK - SIMPLE
[2019-03-11 12:05] LABS: BG BASE EXCESS -4.5 mmol/L (-2.0-2.0); BG BILEVEL POS AIRWAY PRESSURE 15/5; BG CARBOXYHEMOGLOBIN 0.3 % (0.5-1.5); BG DEOXYHEMOGLOBIN 8.3 % (0.0-5.0); BG FRACTION INSPIRED OXYGEN 60; BG HCO3 ACT 23.5 mmol/L (22.0-26.0); BG METHEMOGLOBIN 0.2 % (0.0-1.5); BG OXYGEN SATURATION 91.7 % (92.0-98.5); BG OXYHEMOGLOBIN 91.2 % (94.0-97.0); BG PCO2 57.6 mmHg (35.0-45.0); BG PH 7.229 (7.350-7.450); BG PO2 67.7 mmHg (75.0-100.0); BG SAMPLE SITE RIGHT RADIAL; BG TOTAL HEMOGLOBIN 11.6 g/dL (12.0-18.0); BG VENT MODE MASK - BIPAP
[2019-03-11] MEDS ORDERED: VECURONIUM BROMIDE 10 MG/VIAL IV ONE (13:25)
[2019-03-11] MEDS ORDERED: ETOMIDATE 2MG/ML 10ML VIAL IV ONE (13:25)
[2019-03-11] MEDS ORDERED: VANCOMYCIN 1 G PREMIX 200 ML IV NR (14:00)
[2019-03-11] MEDS ORDERED: FENTANYL CITRATE/PF 500 MCG in SODIUM CHLORIDE 0.9% 40 ML IV PRN (14:00)
[2019-03-11] MEDS: PROPOFOL 10MG/ML 100ML 100 ML IV PRN (14:35)
[2019-03-11 14:39] LABS: BG BASE EXCESS -5.3 mmol/L (-2.0-2.0); BG CARBOXYHEMOGLOBIN 0.3 % (0.5-1.5); BG DEOXYHEMOGLOBIN 1.3 % (0.0-5.0); BG FRACTION INSPIRED OXYGEN 100; BG HCO3 ACT 22.2 mmol/L (22.0-26.0); BG METHEMOGLOBIN 0.1 % (0.0-1.5); BG OXYGEN SATURATION 98.7 % (92.0-98.5); BG OXYHEMOGLOBIN 98.3 % (94.0-97.0); BG PCO2 52.7 mmHg (35.0-45.0); BG PH 7.242 (7.350-7.450); BG PO2 204.5 mmHg (75.0-100.0); BG SAMPLE SITE RIGHT RADIAL; BG TIDAL VOLUME(mL) 550 mL; BG TOTAL HEMOGLOBIN 10.6 g/dL (12.0-18.0); BG VENT MODE VENT - A/C; BG VENT RATE 18 set
[2019-03-11] MEDS ORDERED: MEROPENEM 500 MG in SODIUM CHLORIDE 0.9% 50 ML IV SCH (15:00)
[2019-03-11] MEDS ORDERED: KCL 20MEQ/100ML PREMIX 100 ML IV NR (15:30)
[2019-03-11] MEDS: METHYLPREDNISOLONE SOD SUCC 125 MG/2 ML VIAL IV SCH ×2 (17:26→23:01)
[2019-03-11] MEDS: IPRATROPIUM/ALBUTEROL 0.5-3(2.5)MG/3ML NEB HHN SCH ×2 (17:44→21:12)
[2019-03-11] MEDS: ACETYLCYSTEINE 100MG/ML 10% VIAL 4ML INH SCH (17:44)
[2019-03-11] MEDS: MEROPENEM 500 MG in SODIUM CHLORIDE 0.9% 50 ML IV SCH (18:52)
[2019-03-11 19:27] LABS: BG BASE EXCESS -4.9 mmol/L (-2.0-2.0); BG CARBOXYHEMOGLOBIN 0.3 % (0.5-1.5); BG DEOXYHEMOGLOBIN 1.4 % (0.0-5.0); BG FRACTION INSPIRED OXYGEN 100; BG HCO3 ACT 18.9 mmol/L (22.0-26.0); BG METHEMOGLOBIN 0.3 % (0.0-1.5); BG OXYGEN SATURATION 98.6 % (92.0-98.5); BG PH 7.404 (7.350-7.450); BG PO2 202.1 mmHg (75.0-100.0); BG SAMPLE SITE RIGHT RADIAL; BG TIDAL VOLUME(mL) 600 mL; BG TOTAL HEMOGLOBIN 10.6 g/dL (12.0-18.0); BG VENT MODE VENT - A/C; BG VENT RATE 24 set
[2019-03-12] VITALS (99 sets, daily range): BP systolic 73–162; BP diastolic 38–102
[2019-03-12] MEDS: PROPOFOL 10MG/ML 100ML 100 ML IV PRN ×5 (00:12→21:10)
[2019-03-12] MEDS: IPRATROPIUM/ALBUTEROL 0.5-3(2.5)MG/3ML NEB HHN SCH ×6 (00:44→20:24)
[2019-03-12] MEDS: ACETYLCYSTEINE 100MG/ML 10% VIAL 4ML INH SCH ×3 (00:44→15:49)
[2019-03-12] MEDS: SODIUM CHLORIDE 0.45% 1,000 ML IV SCH (02:42)
[2019-03-12] MEDS: BLOOD SUGAR DIAGNOSTIC STRIP TEST SCH ×4 (05:57→21:11)
[2019-03-12] MEDS: METHYLPREDNISOLONE SOD SUCC 125 MG/2 ML VIAL IV SCH (05:57)
[2019-03-12 06:01] LABS: HEMATOCRIT. 26.6 % (42.0-52.0); HEMOGLOBIN. 8.8 g/dL (14.0-18.0); MEAN CORPUSCULAR HEMOGLOBIN 27.8 pg (28.0-32.0); MEAN CORPUSCULAR VOLUME 84.5 fL (80.0-94.0); MEAN PLATELET VOLUME 9.8 fl (7.4-10.4); PLATELET 231 x1000/uL (130-400); RED BLOOD CELL COUNT 3.15 mill/uL (4.7-6.1); RED CELL DISTRIBUTION WIDTH 15.5 % (11.6-14.6)
[2019-03-12] MEDS: INSULIN LISPRO 100 UNITS/ML SUBCUT SCH ×4 (06:02→21:10)
[2019-03-12 06:16] LABS: CHLORIDE 121 mEq/L (98-107)
[2019-03-12 07:36] LABS: BG BASE EXCESS -11.1 mmol/L (-2.0-2.0); BG CARBOXYHEMOGLOBIN 0.3 % (0.5-1.5); BG DEOXYHEMOGLOBIN 1.8 % (0.0-5.0); BG FRACTION INSPIRED OXYGEN 65; BG HCO3 ACT 13.8 mmol/L (22.0-26.0); BG METHEMOGLOBIN 0.2 % (0.0-1.5); BG OXYGEN SATURATION 98.2 % (92.0-98.5); BG OXYHEMOGLOBIN 97.7 % (94.0-97.0); BG PCO2 28.1 mmHg (35.0-45.0); BG PH 7.309 (7.350-7.450); BG PO2 142.7 mmHg (75.0-100.0); BG SAMPLE SITE RIGHT RADIAL; BG TIDAL VOLUME(mL) 600 mL; BG TOTAL HEMOGLOBIN 11.2 g/dL (12.0-18.0); BG VENT MODE VENT - A/C; BG VENT RATE 24 set
[2019-03-12] MEDS: ASPIRIN 81MG TABLET PO SCH (08:36)
[2019-03-12] MEDS: ENOXAPARIN 40MG/0.4ML SYR SUBCUT SCH (08:37)
[2019-03-12] MEDS: PHENYLEPHRINE 20 MG in DEXT 5% WATER 248 ML IV PRN ×2 (08:58→17:27)
[2019-03-12 09:47] LABS: PLATELET ESTIMATE NORMAL
[2019-03-12] MEDS ORDERED: SODIUM BICARBONATE 8.4% 1 MEQ/ML 50ML SYR IV NR (10:00)
[2019-03-12] MEDS ORDERED: KCL 20MEQ/100ML PREMIX 100 ML IV SCH (11:00)
[2019-03-12] MEDS: DEXTROSE 5% WATER 1,000 ML IV SCH (12:21)
[2019-03-12] MEDS: METHYLPREDNISOLONE SOD SUCC 40 MG/ML VIAL IV SCH ×2 (14:26→21:11)
[2019-03-12] MEDS: MEROPENEM 500 MG in SODIUM CHLORIDE 0.9% 50 ML IV SCH (17:27)
[2019-03-12] MEDS ORDERED: THEOPHYLLINE ANHYDROUS 80 MG/15 ML 120ML NG SCH (22:00)
[2019-03-12] MEDS ORDERED: INSULIN GLARGINE UD 100 UNITS/ML SYR SUBCUT SCH (22:00)
[2019-03-12] MEDS: THEOPHYLLINE ANHYDROUS 80 MG/15 ML 120ML PO SCH (23:26)
[2019-03-13] VITALS (97 sets, daily range): BP systolic 69–164; BP diastolic 34–83
[2019-03-13] MEDS: IPRATROPIUM/ALBUTEROL 0.5-3(2.5)MG/3ML NEB HHN SCH ×6 (00:30→19:57)
[2019-03-13] MEDS: PROPOFOL 10MG/ML 100ML 100 ML IV PRN ×3 (01:42→08:51)
[2019-03-13] MEDS: INSULIN LISPRO 100 UNITS/ML SUBCUT SCH ×2 (05:51→23:18)
[2019-03-13] MEDS: BLOOD SUGAR DIAGNOSTIC STRIP TEST SCH ×4 (05:51→23:18)
[2019-03-13] MEDS: METHYLPREDNISOLONE SOD SUCC 40 MG/ML VIAL IV SCH ×3 (05:51→21:00)
[2019-03-13 06:15] LABS: HEMATOCRIT. 26.9 % (42.0-52.0); HEMOGLOBIN. 8.9 g/dL (14.0-18.0); MEAN CORPUSCULAR HEMOGLOBIN 27.7 pg (28.0-32.0); MEAN CORPUSCULAR VOLUME 83.4 fL (80.0-94.0); PLATELET 290 x1000/uL (130-400); RED BLOOD CELL COUNT 3.23 mill/uL (4.7-6.1); RED CELL DISTRIBUTION WIDTH 15.8 % (11.6-14.6)
[2019-03-13 06:40] LABS: PHOSPHORUS 5.4 mg/dL (2.5-4.9)
[2019-03-13 08:38] LABS: NUCLEATED RED BLOOD CELLS 1 /100 WBC; PLATELET ESTIMATE NORMAL
[2019-03-13] MEDS: ACETYLCYSTEINE 100MG/ML 10% VIAL 4ML INH SCH ×2 (08:48→17:17)
[2019-03-13] MEDS: ASPIRIN 81MG TABLET PO SCH (08:49)
[2019-03-13] MEDS: PANTOPRAZOLE SODIUM 40 MG/VIAL IV SCH (08:49)
[2019-03-13] MEDS: ENOXAPARIN 40MG/0.4ML SYR SUBCUT SCH (08:50)
[2019-03-13] MEDS: PHENYLEPHRINE 20 MG in DEXT 5% WATER 248 ML IV PRN (08:55)
[2019-03-13] MEDS: THEOPHYLLINE ANHYDROUS 80 MG/15 ML 120ML PO SCH ×3 (09:12→23:56)
[2019-03-13 09:22] LABS: BG BASE EXCESS -6.2 mmol/L (-2.0-2.0); BG CARBOXYHEMOGLOBIN 0.3 % (0.5-1.5); BG DEOXYHEMOGLOBIN 1.4 % (0.0-5.0); BG FRACTION INSPIRED OXYGEN 40; BG HCO3 ACT 17.1 mmol/L (22.0-26.0); BG METHEMOGLOBIN 0.3 % (0.0-1.5); BG PCO2 28.7 mmHg (35.0-45.0); BG PH 7.394 (7.350-7.450); BG PO2 210.9 mmHg (75.0-100.0); BG SAMPLE SITE RIGHT RADIAL; BG TIDAL VOLUME(mL) 550 mL; BG TOTAL HEMOGLOBIN 9.2 g/dL (12.0-18.0); BG VENT MODE VENT - A/C; BG VENT RATE 14 set
[2019-03-13] MEDS ORDERED: POTASSIUM CHLORIDE INJ 40 MEQ in DEXT 5% WATER 250 ML IV ONE (09:30)
[2019-03-13] MEDS: CITRIC ACID/SODIUM CITRATE SOLN 30ML UDC NG SCH ×3 (10:28→17:51)
[2019-03-13] MEDS ORDERED: PROPOFOL 10MG/ML 100ML 100 ML IV PRN (12:30)
[2019-03-13] MEDS ORDERED: INSULIN LISPRO 100 UNITS/ML SUBCUT SCH ×2 (13:45→17:00)
[2019-03-13] MEDS: MIDAZOLAM HCL 50 MG in DEXTROSE 5% WATER 40 ML IV PRN (14:24)
[2019-03-13] MEDS: FENTANYL CITRATE/PF 500 MCG in SODIUM CHLORIDE 0.9% 40 ML IV PRN ×3 (14:25→23:51)
[2019-03-13] MEDS: MEROPENEM 500 MG in SODIUM CHLORIDE 0.9% 50 ML IV SCH (17:51)
[2019-03-13] MEDS: DEXTROSE 5% WATER 1,000 ML IV SCH (21:00)
[2019-03-13] MEDS ORDERED: INSULIN GLARGINE UD 100 UNITS/ML SYR SUBCUT SCH (22:00)
[2019-03-14] VITALS (88 sets, daily range): BP systolic 84–153; BP diastolic 46–101
[2019-03-14] MEDS: ACETYLCYSTEINE 100MG/ML 10% VIAL 4ML INH SCH ×4 (00:12→15:26)
[2019-03-14] MEDS: IPRATROPIUM/ALBUTEROL 0.5-3(2.5)MG/3ML NEB HHN SCH ×6 (00:12→20:24)
[2019-03-14] MEDS: MIDAZOLAM HCL 50 MG in DEXTROSE 5% WATER 40 ML IV PRN (01:33)
[2019-03-14] MEDS: PHENYLEPHRINE 20 MG in DEXT 5% WATER 248 ML IV PRN (05:44)
[2019-03-14] MEDS: METHYLPREDNISOLONE SOD SUCC 40 MG/ML VIAL IV SCH ×3 (05:44→21:46)
[2019-03-14] MEDS: INSULIN LISPRO 100 UNITS/ML SUBCUT SCH ×4 (05:45→23:57)
[2019-03-14] MEDS: BLOOD SUGAR DIAGNOSTIC STRIP TEST SCH ×3 (05:45→17:48)
[2019-03-14 05:58] LABS: HEMATOCRIT. 28.8 % (42.0-52.0); HEMOGLOBIN. 9.5 g/dL (14.0-18.0); MEAN CORPUSCULAR HEMOGLOBIN 27.4 pg (28.0-32.0); MEAN CORPUSCULAR VOLUME 83.3 fL (80.0-94.0); MEAN PLATELET VOLUME 9.8 fl (7.4-10.4); PLATELET 302 x1000/uL (130-400); RED BLOOD CELL COUNT 3.46 mill/uL (4.7-6.1); RED CELL DISTRIBUTION WIDTH 15.8 % (11.6-14.6)
[2019-03-14] MEDS: PANTOPRAZOLE SODIUM 40 MG/VIAL IV SCH (08:11)
[2019-03-14] MEDS: ASPIRIN 81MG TABLET PO SCH (08:11)
[2019-03-14] MEDS: THEOPHYLLINE ANHYDROUS 80 MG/15 ML 120ML PO SCH ×3 (08:12→23:56)
[2019-03-14] MEDS: ENOXAPARIN 40MG/0.4ML SYR SUBCUT SCH (08:13)
[2019-03-14] MEDS: FENTANYL CITRATE/PF 500 MCG in SODIUM CHLORIDE 0.9% 40 ML IV PRN ×2 (09:21→15:29)
[2019-03-14 09:23] LABS: PHOSPHORUS 4.6 mg/dL (2.5-4.9)
[2019-03-14] MEDS: CITRIC ACID/SODIUM CITRATE SOLN 30ML UDC NG SCH ×3 (09:33→15:28)
[2019-03-14 09:47] LABS: BG BASE EXCESS -6.2 mmol/L (-2.0-2.0); BG CARBOXYHEMOGLOBIN 0.2 % (0.5-1.5); BG DEOXYHEMOGLOBIN 1.5 % (0.0-5.0); BG FRACTION INSPIRED OXYGEN 40; BG HCO3 ACT 19.1 mmol/L (22.0-26.0); BG METHEMOGLOBIN 0.3 % (0.0-1.5); BG OXYGEN SATURATION 98.5 % (92.0-98.5); BG PCO2 36.7 mmHg (35.0-45.0); BG PH 7.334 (7.350-7.450); BG PO2 207.5 mmHg (75.0-100.0); BG SAMPLE SITE RIGHT BRACHIAL; BG TIDAL VOLUME(mL) 550 mL; BG TOTAL HEMOGLOBIN 10.1 g/dL (12.0-18.0); BG VENT MODE VENT - A/C; BG VENT RATE 24 set
[2019-03-14 09:56] LABS: NUCLEATED RED BLOOD CELLS 5 /100 WBC; PLATELET ESTIMATE NORMAL
[2019-03-14] MEDS ORDERED: VANCOMYCIN 1 G PREMIX 200 ML IV NR (12:00)
[2019-03-14] MEDS: MEROPENEM 500 MG in SODIUM CHLORIDE 0.9% 50 ML IV SCH (18:56)
[2019-03-14] MEDS: INSULIN GLARGINE UD 100 UNITS/ML SYR SUBCUT SCH (21:50)
[2019-03-15] VITALS (68 sets, daily range): BP systolic 86–170; BP diastolic 37–112
[2019-03-15] MEDS: FENTANYL CITRATE/PF 500 MCG in SODIUM CHLORIDE 0.9% 40 ML IV PRN ×3 (00:14→21:20)
[2019-03-15] MEDS: PHENYLEPHRINE 20 MG in DEXT 5% WATER 248 ML IV PRN (00:17)
[2019-03-15] MEDS: IPRATROPIUM/ALBUTEROL 0.5-3(2.5)MG/3ML NEB HHN SCH ×6 (00:19→20:46)
[2019-03-15] MEDS: ACETYLCYSTEINE 100MG/ML 10% VIAL 4ML INH SCH ×2 (00:19→08:15)
[2019-03-15] MEDS: BLOOD SUGAR DIAGNOSTIC STRIP TEST SCH ×4 (00:45→17:38)
[2019-03-15] MEDS: METHYLPREDNISOLONE SOD SUCC 40 MG/ML VIAL IV SCH ×3 (06:04→21:16)
[2019-03-15 06:06] LABS: MEAN CORPUSCULAR HEMOGLOBIN 27.6 pg (28.0-32.0); MEAN CORPUSCULAR VOLUME 82.7 fL (80.0-94.0); MEAN PLATELET VOLUME 9.6 fl (7.4-10.4); PLATELET 285 x1000/uL (130-400); RED BLOOD CELL COUNT 3.26 mill/uL (4.7-6.1); RED CELL DISTRIBUTION WIDTH 15.4 % (11.6-14.6)
[2019-03-15] MEDS: INSULIN LISPRO 100 UNITS/ML SUBCUT SCH ×3 (06:06→18:29)
[2019-03-15 06:37] LABS: PHOSPHORUS 4.6 mg/dL (2.5-4.9)
[2019-03-15 08:16] LABS: BG BASE EXCESS -2.4 mmol/L (-2.0-2.0); BG CARBOXYHEMOGLOBIN 0.3 % (0.5-1.5); BG DEOXYHEMOGLOBIN 1.3 % (0.0-5.0); BG HCO3 ACT 22.2 mmol/L (22.0-26.0); BG METHEMOGLOBIN 0.2 % (0.0-1.5); BG OXYGEN SATURATION 98.7 % (92.0-98.5); BG OXYHEMOGLOBIN 98.2 % (94.0-97.0); BG PCO2 37.3 mmHg (35.0-45.0); BG PH 7.392 (7.350-7.450); BG PO2 184.4 mmHg (75.0-100.0); BG SAMPLE SITE RIGHT RADIAL; BG TIDAL VOLUME(mL) 550 mL; BG TOTAL HEMOGLOBIN 8.7 g/dL (12.0-18.0); BG VENT MODE VENT - A/C; BG VENT RATE 20 set
[2019-03-15] MEDS: ENOXAPARIN 40MG/0.4ML SYR SUBCUT SCH (08:26)
[2019-03-15] MEDS: ASPIRIN 81MG TABLET PO SCH (08:27)
[2019-03-15] MEDS: PANTOPRAZOLE SODIUM 40 MG/VIAL IV SCH (08:27)
[2019-03-15] MEDS: CITRIC ACID/SODIUM CITRATE SOLN 30ML UDC NG SCH ×3 (08:27→18:28)
[2019-03-15] MEDS: THEOPHYLLINE ANHYDROUS 80 MG/15 ML 120ML PO SCH ×2 (08:28→18:29)
[2019-03-15] MEDS: MIDAZOLAM HCL 50 MG in DEXTROSE 5% WATER 40 ML IV PRN (08:47)
[2019-03-15 15:42] LABS: NUCLEATED RED BLOOD CELLS 2 /100 WBC; PLATELET ESTIMATE NORMAL
[2019-03-15] MEDS: MEROPENEM 500 MG in SODIUM CHLORIDE 0.9% 50 ML IV SCH (18:28)
[2019-03-15] MEDS: INSULIN GLARGINE UD 100 UNITS/ML SYR SUBCUT SCH (21:19)
[2019-03-16] VITALS (97 sets, daily range): BP systolic 109–194; BP diastolic 48–90
[2019-03-16] MEDS: INSULIN LISPRO 100 UNITS/ML SUBCUT SCH ×5 (00:58→23:42)
[2019-03-16] MEDS: THEOPHYLLINE ANHYDROUS 80 MG/15 ML 120ML PO SCH ×4 (00:59→23:41)
[2019-03-16] MEDS: IPRATROPIUM/ALBUTEROL 0.5-3(2.5)MG/3ML NEB HHN SCH ×6 (01:30→20:10)
[2019-03-16] MEDS: ACETYLCYSTEINE 100MG/ML 10% VIAL 4ML INH SCH ×2 (01:31→07:54)
[2019-03-16 04:36] LABS: HEMATOCRIT. 28.3 % (42.0-52.0); HEMOGLOBIN. 9.4 g/dL (14.0-18.0); MEAN CORPUSCULAR HEMOGLOBIN 27.5 pg (28.0-32.0); MEAN CORPUSCULAR VOLUME 82.9 fL (80.0-94.0); MEAN PLATELET VOLUME 9.7 fl (7.4-10.4); PLATELET 245 x1000/uL (130-400); RED BLOOD CELL COUNT 3.41 mill/uL (4.7-6.1); RED CELL DISTRIBUTION WIDTH 15.6 % (11.6-14.6)
[2019-03-16] MEDS: METHYLPREDNISOLONE SOD SUCC 40 MG/ML VIAL IV SCH ×3 (05:21→22:00)
[2019-03-16] MEDS: BLOOD SUGAR DIAGNOSTIC STRIP TEST SCH ×5 (05:22→23:42)
[2019-03-16 05:23] LABS: PHOSPHORUS 4.1 mg/dL (2.5-4.9)
[2019-03-16] MEDS: FENTANYL CITRATE/PF 500 MCG in SODIUM CHLORIDE 0.9% 40 ML IV PRN ×2 (05:59→16:31)
[2019-03-16] MEDS: CLONIDINE 0.1MG TABLET PO PRN (06:14)
[2019-03-16 09:49] LABS: BG BASE EXCESS 1.2 mmol/L (-2.0-2.0); BG CARBOXYHEMOGLOBIN 0.2 % (0.5-1.5); BG DEOXYHEMOGLOBIN 1.6 % (0.0-5.0); BG FRACTION INSPIRED OXYGEN 40; BG HCO3 ACT 24.6 mmol/L (22.0-26.0); BG METHEMOGLOBIN 0.3 % (0.0-1.5); BG OXYGEN SATURATION 98.4 % (92.0-98.5); BG OXYHEMOGLOBIN 97.9 % (94.0-97.0); BG PCO2 34.8 mmHg (35.0-45.0); BG PH 7.468 (7.350-7.450); BG PO2 135.5 mmHg (75.0-100.0); BG SAMPLE SITE RIGHT RADIAL; BG TIDAL VOLUME(mL) 550 mL; BG TOTAL HEMOGLOBIN 10.8 g/dL (12.0-18.0); BG VENT MODE VENT - A/C; BG VENT RATE 18 set
[2019-03-16] MEDS: ASPIRIN 81MG TABLET PO SCH (10:06)
[2019-03-16] MEDS: PANTOPRAZOLE SODIUM 40 MG/VIAL IV SCH (10:06)
[2019-03-16] MEDS: ENOXAPARIN 40MG/0.4ML SYR SUBCUT SCH (10:07)
[2019-03-16] MEDS: MEROPENEM 500 MG in SODIUM CHLORIDE 0.9% 50 ML IV SCH (17:51)
[2019-03-16] MEDS: INSULIN GLARGINE UD 100 UNITS/ML SYR SUBCUT SCH (22:00)
[2019-03-17] VITALS (74 sets, daily range): BP systolic 117–191; BP diastolic 50–94
[2019-03-17] MEDS: IPRATROPIUM/ALBUTEROL 0.5-3(2.5)MG/3ML NEB HHN SCH ×6 (00:20→20:18)
[2019-03-17] MEDS: CLONIDINE 0.1MG TABLET PO PRN ×4 (02:19→23:53)
[2019-03-17] MEDS: FENTANYL CITRATE/PF 500 MCG in SODIUM CHLORIDE 0.9% 40 ML IV PRN ×2 (04:01→16:13)
[2019-03-17 04:22] LABS: PLATELET ESTIMATE NORMAL
[2019-03-17 05:26] LABS: HEMATOCRIT. 27.4 % (42.0-52.0); HEMOGLOBIN. 9.2 g/dL (14.0-18.0); MEAN PLATELET VOLUME 9.7 fl (7.4-10.4); PLATELET 231 x1000/uL (130-400); RED CELL DISTRIBUTION WIDTH 15.7 % (11.6-14.6)
[2019-03-17] MEDS: INSULIN LISPRO 100 UNITS/ML SUBCUT SCH ×4 (06:32→23:54)
[2019-03-17] MEDS: BLOOD SUGAR DIAGNOSTIC STRIP TEST SCH ×4 (06:32→23:54)
[2019-03-17] MEDS: METHYLPREDNISOLONE SOD SUCC 40 MG/ML VIAL IV SCH ×2 (06:32→21:37)
[2019-03-17] MEDS: ACETYLCYSTEINE 100MG/ML 10% VIAL 4ML INH SCH (08:36)
[2019-03-17] MEDS: PANTOPRAZOLE SODIUM 40 MG/VIAL IV SCH (08:57)
[2019-03-17] MEDS: ASPIRIN 81MG TABLET PO SCH (08:57)
[2019-03-17] MEDS: THEOPHYLLINE ANHYDROUS 80 MG/15 ML 120ML PO SCH ×3 (08:58→23:53)
[2019-03-17] MEDS: ENOXAPARIN 40MG/0.4ML SYR SUBCUT SCH (08:59)
[2019-03-17 10:02] LABS: PLATELET ESTIMATE NORMAL
[2019-03-17] MEDS ORDERED: VANCOMYCIN 750 MG PREMIX 150 ML IV SCH (11:00)
[2019-03-17 12:50] LABS: BG CARBOXYHEMOGLOBIN 0.3 % (0.5-1.5); BG DEOXYHEMOGLOBIN 3.4 % (0.0-5.0); BG FRACTION INSPIRED OXYGEN 30; BG HCO3 ACT 27.8 mmol/L (22.0-26.0); BG METHEMOGLOBIN 0.1 % (0.0-1.5); BG OXYGEN SATURATION 96.6 % (92.0-98.5); BG OXYHEMOGLOBIN 96.2 % (94.0-97.0); BG PCO2 43.8 mmHg (35.0-45.0); BG PO2 93.3 mmHg (75.0-100.0); BG SAMPLE SITE RIGHT RADIAL; BG VENT MODE VENT - CPAP
[2019-03-17] MEDS: MEROPENEM 500 MG in SODIUM CHLORIDE 0.9% 50 ML IV SCH (18:16)
[2019-03-17] MEDS: INSULIN GLARGINE UD 100 UNITS/ML SYR SUBCUT SCH (21:36)
[2019-03-18] VITALS (56 sets, daily range): BP systolic 95–194; BP diastolic 43–89
[2019-03-18] MEDS: IPRATROPIUM/ALBUTEROL 0.5-3(2.5)MG/3ML NEB HHN SCH ×7 (00:42→20:25)
[2019-03-18] MEDS: BLOOD SUGAR DIAGNOSTIC STRIP TEST SCH ×4 (05:13→23:16)
[2019-03-18] MEDS: INSULIN LISPRO 100 UNITS/ML SUBCUT SCH ×4 (05:13→23:20)
[2019-03-18 05:36] LABS: HEMATOCRIT. 29.3 % (42.0-52.0); HEMOGLOBIN. 9.6 g/dL (14.0-18.0); MEAN CORPUSCULAR HEMOGLOBIN 27.2 pg (28.0-32.0); MEAN PLATELET VOLUME 9.6 fl (7.4-10.4); PLATELET 248 x1000/uL (130-400); RED BLOOD CELL COUNT 3.53 mill/uL (4.7-6.1); RED CELL DISTRIBUTION WIDTH 15.8 % (11.6-14.6)
[2019-03-18 05:48] LABS: PHOSPHORUS 3.6 mg/dL (2.5-4.9)
[2019-03-18] MEDS: PANTOPRAZOLE SODIUM 40 MG/VIAL IV SCH (08:23)
[2019-03-18] MEDS: ASPIRIN 81MG TABLET PO SCH (08:23)
[2019-03-18] MEDS: THEOPHYLLINE ANHYDROUS 80 MG/15 ML 120ML PO SCH ×4 (08:24→23:21)
[2019-03-18] MEDS: ENOXAPARIN 40MG/0.4ML SYR SUBCUT SCH (08:24)
[2019-03-18] MEDS: METHYLPREDNISOLONE SOD SUCC 40 MG/ML VIAL IV SCH ×3 (08:24→17:56)
[2019-03-18 10:05] LABS: PLATELET ESTIMATE NORMAL
[2019-03-18 11:00] LABS: BG BASE EXCESS 4.4 mmol/L (-2.0-2.0); BG CARBOXYHEMOGLOBIN 0.3 % (0.5-1.5); BG DEOXYHEMOGLOBIN 3.1 % (0.0-5.0); BG FRACTION INSPIRED OXYGEN 35; BG HCO3 ACT 28.7 mmol/L (22.0-26.0); BG METHEMOGLOBIN 0.1 % (0.0-1.5); BG OXYGEN SATURATION 96.9 % (92.0-98.5); BG OXYHEMOGLOBIN 96.5 % (94.0-97.0); BG PH 7.453 (7.350-7.450); BG PO2 93.4 mmHg (75.0-100.0); BG PRESSURE SUPPORT 8; BG SAMPLE SITE RIGHT RADIAL; BG TOTAL HEMOGLOBIN 10.8 g/dL (12.0-18.0); BG VENT MODE VENT - CPAP
[2019-03-18] MEDS ORDERED: TERBUTALINE SULFATE 1MG/ML VIAL SUBCUT NR (11:00)
[2019-03-18] MEDS: MEROPENEM 500 MG in SODIUM CHLORIDE 0.9% 50 ML IV SCH (17:48)
[2019-03-18] MEDS: CLONIDINE 0.1MG TABLET PO PRN (20:17)
[2019-03-18] MEDS: AMLODIPINE 2.5MG TABLET PO NR ×2 (21:30→21:34)
[2019-03-18] MEDS: INSULIN GLARGINE UD 100 UNITS/ML SYR SUBCUT SCH (21:31)
[2019-03-19] VITALS (45 sets, daily range): BP systolic 127–178; BP diastolic 43–77
[2019-03-19] MEDS: IPRATROPIUM/ALBUTEROL 0.5-3(2.5)MG/3ML NEB HHN SCH ×6 (01:06→20:11)
[2019-03-19] MEDS: METHYLPREDNISOLONE SOD SUCC 40 MG/ML VIAL IV SCH ×3 (02:33→18:43)
[2019-03-19] MEDS: THEOPHYLLINE ANHYDROUS 80 MG/15 ML 120ML PO SCH ×3 (05:03→17:37)
[2019-03-19] MEDS: INSULIN LISPRO 100 UNITS/ML SUBCUT SCH ×4 (05:03→23:45)
[2019-03-19] MEDS: BLOOD SUGAR DIAGNOSTIC STRIP TEST SCH ×4 (05:04→23:46)
[2019-03-19 05:47] LABS: HEMATOCRIT. 26.7 % (42.0-52.0); HEMOGLOBIN. 9.1 g/dL (14.0-18.0); MEAN CORPUSCULAR HEMOGLOBIN 28.1 pg (28.0-32.0); MEAN CORPUSCULAR VOLUME 82.6 fL (80.0-94.0); MEAN PLATELET VOLUME 9.7 fl (7.4-10.4); PLATELET 243 x1000/uL (130-400); RED BLOOD CELL COUNT 3.23 mill/uL (4.7-6.1); RED CELL DISTRIBUTION WIDTH 15.6 % (11.6-14.6)
[2019-03-19 06:12] LABS: PHOSPHORUS 3.5 mg/dL (2.5-4.9)
[2019-03-19 07:58] LABS: PLATELET ESTIMATE NORMAL
[2019-03-19] MEDS: PANTOPRAZOLE SODIUM 40 MG/VIAL IV SCH (08:33)
[2019-03-19] MEDS: ENOXAPARIN 30MG/0.3ML SYR SUBCUT SCH ×2 (08:33→20:38)
[2019-03-19] MEDS: AMLODIPINE 2.5MG TABLET PO SCH ×2 (08:34→20:38)
[2019-03-19] MEDS: ASPIRIN 81MG TABLET PO SCH (08:34)
[2019-03-19] MEDS: CLONIDINE 0.1MG TABLET PO PRN ×2 (08:37→15:37)
[2019-03-19] MEDS: MEROPENEM 500 MG in SODIUM CHLORIDE 0.9% 50 ML IV SCH ×2 (12:38→23:46)
[2019-03-19] MEDS ORDERED: VANCOMYCIN HCL 750 MG in DEXT 5% WATER 250 ML IV SCH (14:00)
[2019-03-19] MEDS: INSULIN GLARGINE UD 100 UNITS/ML SYR SUBCUT SCH (23:46)
[2019-03-20] VITALS (13 sets, daily range): BP systolic 141–182; BP diastolic 40–98
[2019-03-20] MEDS: IPRATROPIUM/ALBUTEROL 0.5-3(2.5)MG/3ML NEB HHN SCH ×6 (00:23→20:53)
[2019-03-20] MEDS: THEOPHYLLINE ANHYDROUS 80 MG/15 ML 120ML PO SCH ×5 (00:30→23:33)
[2019-03-20] MEDS: CLONIDINE 0.1MG TABLET PO PRN ×3 (00:31→14:42)
[2019-03-20] MEDS: METHYLPREDNISOLONE SOD SUCC 40 MG/ML VIAL IV SCH ×3 (04:56→18:05)
[2019-03-20] MEDS: BLOOD SUGAR DIAGNOSTIC STRIP TEST SCH ×4 (05:21→23:33)
[2019-03-20] MEDS: INSULIN LISPRO 100 UNITS/ML SUBCUT SCH ×4 (05:21→23:32)
[2019-03-20 07:46] LABS: PHOSPHORUS 2.4 mg/dL (2.5-4.9)
[2019-03-20 07:48] LABS: HEMATOCRIT. 27.6 % (42.0-52.0); HEMOGLOBIN. 9.1 g/dL (14.0-18.0); MEAN CORPUSCULAR HEMOGLOBIN 27.6 pg (28.0-32.0); MEAN CORPUSCULAR VOLUME 83.5 fL (80.0-94.0); MEAN PLATELET VOLUME 10.1 fl (7.4-10.4); PLATELET 234 x1000/uL (130-400); RED CELL DISTRIBUTION WIDTH 15.3 % (11.6-14.6)
[2019-03-20] MEDS: PANTOPRAZOLE SODIUM 40 MG/VIAL IV SCH (08:26)
[2019-03-20] MEDS: ENOXAPARIN 30MG/0.3ML SYR SUBCUT SCH ×2 (08:27→20:00)
[2019-03-20] MEDS: ASPIRIN 81MG TABLET PO SCH (08:27)
[2019-03-20] MEDS: SODIUM CHLORIDE 0.45% 1,000 ML IV SCH (08:41)
[2019-03-20] MEDS ORDERED: POTASSIUM PHOS,M-BASIC-D-BASIC 15 MMOL in DEXT 5% WATER 245 ML IV NR (09:00)
[2019-03-20] MEDS ORDERED: AMLODIPINE 2.5MG TABLET PO SCH (09:00)
[2019-03-20 11:16] LABS: PLATELET ESTIMATE NORMAL
[2019-03-20] MEDS: MEROPENEM 500 MG in SODIUM CHLORIDE 0.9% 50 ML IV SCH (12:29)
[2019-03-20] MEDS ORDERED: KCL 20MEQ/100ML PREMIX 100 ML IV NR (13:00)
[2019-03-20] MEDS ORDERED: VANCOMYCIN 750 MG PREMIX 150 ML IV NR (14:30)
[2019-03-20] MEDS: HYDRALAZINE HCL 50MG TABLET PO SCH ×2 (16:29→20:01)
[2019-03-20] MEDS: AMLODIPINE 5MG TABLET PO SCH (20:01)
[2019-03-20] MEDS: INSULIN GLARGINE UD 100 UNITS/ML SYR SUBCUT SCH (21:02)
[2019-03-21] VITALS (11 sets, daily range): BP systolic 130–169; BP diastolic 49–79
[2019-03-21] MEDS: CLONIDINE 0.1MG TABLET PO PRN (00:04)
[2019-03-21] MEDS: IPRATROPIUM/ALBUTEROL 0.5-3(2.5)MG/3ML NEB HHN SCH ×6 (00:58→20:31)
[2019-03-21] MEDS: METHYLPREDNISOLONE SOD SUCC 40 MG/ML VIAL IV SCH ×3 (02:15→18:42)
[2019-03-21] MEDS: INSULIN LISPRO 100 UNITS/ML SUBCUT SCH ×3 (05:31→18:43)
[2019-03-21] MEDS: BLOOD SUGAR DIAGNOSTIC STRIP TEST SCH ×3 (05:32→18:34)
[2019-03-21] MEDS: THEOPHYLLINE ANHYDROUS 80 MG/15 ML 120ML PO SCH ×3 (05:32→18:42)
[2019-03-21 07:20] LABS: PHOSPHORUS 2.8 mg/dL (2.5-4.9)
[2019-03-21 07:24] LABS: HEMATOCRIT. 30.8 % (42.0-52.0); MEAN CORPUSCULAR HEMOGLOBIN 27.1 pg (28.0-32.0); MEAN CORPUSCULAR VOLUME 83.5 fL (80.0-94.0); MEAN PLATELET VOLUME 10.3 fl (7.4-10.4); PLATELET 273 x1000/uL (130-400); RED BLOOD CELL COUNT 3.68 mill/uL (4.7-6.1); RED CELL DISTRIBUTION WIDTH 15.7 % (11.6-14.6)
[2019-03-21] MEDS: ENOXAPARIN 30MG/0.3ML SYR SUBCUT SCH ×2 (08:27→21:14)
[2019-03-21] MEDS: ASPIRIN 81MG TABLET PO SCH (08:27)
[2019-03-21] MEDS: PANTOPRAZOLE SODIUM 40 MG/VIAL IV SCH (08:27)
[2019-03-21] MEDS: AMLODIPINE 5MG TABLET PO SCH ×2 (08:27→21:15)
[2019-03-21] MEDS: HYDRALAZINE HCL 50MG TABLET PO SCH ×2 (08:27→21:15)
[2019-03-21] MEDS: SODIUM CHLORIDE 0.45% 1,000 ML IV SCH (11:34)
[2019-03-21] MEDS: MEROPENEM 500 MG in SODIUM CHLORIDE 0.9% 50 ML IV SCH ×3 (13:51)
[2019-03-21 14:29] LABS: PLATELET ESTIMATE NORMAL
[2019-03-21] MEDS ORDERED: VANCOMYCIN 750 MG PREMIX 150 ML IV SCH (21:00)
[2019-03-22] MEDS ORDERED: ZINC SULFATE 220 MG ( 50 ) CAPSULE PO SCH (09:00)
[2019-03-22] MEDS ORDERED: ASCORBIC ACID 500 MG TABLET PO SCH (09:00)
== END 2019-03-21 22:30 | DRG 870 ==
LOC: ER 12:45 → 5EST 15:17 → EDBEDREQSVC 15:27 → ENRESERV 19:48 → MICUNO 03-11 13:10 → 5EST 03-19 21:10
PROVIDERS: ADMIT Internal Medicine Critical Care Medicine; ATTEND Internal Medicine Critical Care Medicine
PROC: 02HV33Z Insertion of Infusion Device into Superior Vena Cava, Percutaneous Approach (ICD-10-PCS; 2019-03-10)
PROC: B548ZZA Ultrasonography of Superior Vena Cava, Guidance (ICD-10-PCS; 2019-03-10)
PROC: 5A1955Z Respiratory Ventilation, Greater than 96 Consecutive Hours (ICD-10-PCS; principal; 2019-03-11)
PROC: 0BH17EZ Insertion of Endotracheal Airway into Trachea, Via Natural or Artificial Opening (ICD-10-PCS; 2019-03-11)
PROC: 5A12012 Performance of Cardiac Output, Single, Manual (ICD-10-PCS; 2019-03-11)
PROC: 0BH17EZ Insertion of Endotracheal Airway into Trachea, Via Natural or Artificial Opening (ICD-10-PCS; 2019-03-11)
PROC: 02HV33Z Insertion of Infusion Device into Superior Vena Cava, Percutaneous Approach (ICD-10-PCS; 2019-03-15)
PROC: B548ZZA Ultrasonography of Superior Vena Cava, Guidance (ICD-10-PCS; 2019-03-15)
DX: A41.9 Sepsis, unspecified organism (principal); I21.4 Non-ST elevation (NSTEMI) myocardial infarction; J96.20 Acute and chronic respiratory failure, unspecified whether with hypoxia or hypercapnia; E43 Unspecified severe protein-calorie malnutrition; G93.41 Metabolic encephalopathy; J18.1 Lobar pneumonia, unspecified organism; I46.9 Cardiac arrest, cause unspecified; R65.21 Severe sepsis with septic shock; N17.0 Acute kidney failure with tubular necrosis; L03.113 Cellulitis of right upper limb; E87.1 Hypo-osmolality and hyponatremia; L03.114 Cellulitis of left upper limb; E87.0 Hyperosmolality and hypernatremia; I69.354 Hemiplegia and hemiparesis following cerebral infarction affecting left non-dominant side; I42.9 Cardiomyopathy, unspecified; R65.20 Severe sepsis without septic shock; D64.9 Anemia, unspecified; E87.8 Other disorders of electrolyte and fluid balance, not elsewhere classified; I12.9 Hypertensive chronic kidney disease with stage 1 through stage 4 chronic kidney disease, or unspecified chronic kidney disease; N18.2 Chronic kidney disease, stage 2 (mild); G47.33 Obstructive sleep apnea (adult) (pediatric); M19.90 Unspecified osteoarthritis, unspecified site; T38.0X5A Adverse effect of glucocorticoids and synthetic analogues, initial encounter; L89.159 Pressure ulcer of sacral region, unspecified stage; L89.019 Pressure ulcer of right elbow, unspecified stage; T88.8XXA Other specified complications of surgical and medical care, not elsewhere classified, initial encounter; Y84.8 Other medical procedures as the cause of abnormal reaction of the patient, or of later complication, without mention of misadventure at the time of the procedure; S61.412A Laceration without foreign body of left hand, initial encounter; X58.XXXA Exposure to other specified factors, initial encounter; E11.51 Type 2 diabetes mellitus with diabetic peripheral angiopathy without gangrene; E11.22 Type 2 diabetes mellitus with diabetic chronic kidney disease; E66.9 Obesity, unspecified; I69.322 Dysarthria following cerebral infarction; Z79.02 Long term (current) use of antithrombotics/antiplatelets; Z79.4 Long term (current) use of insulin; Z79.899 Other long term (current) drug therapy; Z82.49 Family history of ischemic heart disease and other diseases of the circulatory system; Z83.3 Family history of diabetes mellitus; Z89.512 Acquired absence of left leg below knee; Z99.3 Dependence on wheelchair; Z68.34 Body mass index [BMI] 34.0-34.9, adult; Y93.89 Activity, other specified; Y92.89 Other specified places as the place of occurrence of the external cause; Y99.8 Other external cause status
CPT/HCPCS: 31500; 36415; 36600; 71045; 71250; 76770; 76937; 80048; 80053; 80202; 81003; 82375; 82550; 82553; 82805; 82962; 83605; 83735; 83880; 83935; 84100; 84134; 84145; 84478; 84484; 85025; 87070; 92610; 93005; 93306; 93971; 94002; 94003; 94640; 94660; 94667; 97163; 97165; 99291; A6261; C1725; C1752; C1769; C9113; J1650; J1815; J1956; J2185; J2250; J2370; J2543; J2704; J2920; J2930; J3010; J3105; J3370; J3480; J3490; J7030; J7040; J7042; J7060; J7070; J7608; J7620; P9047